=== PATIENT | female | born 1945 | race Caucasian/White ===

== ENCOUNTER 2020-10-01 20:58 | Inpatient (IN) | payer MEDICARE ==
[~2020-10-01] VITALS: Ht 154.9 cm; Wt 57.8 kg
[2020-10-01 21:21] LABS: BASOPHILS % (AUTO) 3 % (0-1); EOSINOPHILS % (AUTO) 2 % (1-7); LYMPHOCYTES % (AUTO) 36 % (22-44); MEAN CORPUSCULAR HEMOGLOBIN 31.6 pg (27.0-34.8); MEAN CORPUSCULAR HGB CONC 32.9 g/dL (32.4-35.8); MEAN PLATELET VOLUME 7.8 fL (7.4-10.4); MONOCYTES % (AUTO) 11 % (2-9); NEUTROPHILS % (AUTO) 48 % (42-75); PLATELET COUNT 322 x10^3/uL (130-400); RED BLOOD COUNT 4.02 x10^6/uL (3.82-5.3); RED CELL DISTRIBUTION WIDTH 12.8 % (9.6-15.2)
[2020-10-01 21:23] LABS: MD NO
[2020-10-01] MEDS ORDERED: [UNRECOGNIZED DRUG - REMARK] MC SCH (21:30)
[2020-10-01] MEDS ORDERED: PROPOFOL 100 ML IV PRN (21:30)
[2020-10-01] MEDS ORDERED: MIDAZOLAM 1 MG/ML, 5ML IVPush ONE ×2 (21:30→22:30)
--- NOTE | 2020-10-01 21:30 | NUR ---
Verbal order 5mg versed for breakthrough movement.
--- NOTE | 2020-10-01 22:01 | NUR ---
ETT 7.5 24 and lip tube exchange by dr gomez.
--- NOTE | 2020-10-01 22:02 | NUR ---
Verbal 5mg IV for tube exchange. Son here informed and updated. Pt son states from [place], has hx of status epilepsy.
--- NOTE | 2020-10-01 22:09 | NUR ---
Benito Neal: [phone] [facility].
--- NOTE | 2020-10-01 22:32 | NUR ---
Requested versed drip for breakthrough movement. Waiting for hospitalist orders/pulm orders. VSS. Urine sent to lab
[2020-10-01] MEDS ORDERED: FENTANYL PF 100 MCG/2ML ONE (22:35)
[2020-10-01 22:53] LABS: MICROSCOPIC NOT IND
[2020-10-01] MEDS ORDERED: FENTANYL PF 100 MCG/2ML IVPush ONE (23:00)
[2020-10-01] MEDS ORDERED: MIDAZOLAM HCL 50 MG in SODIUM CHLORIDE 0.9% 40 ML IV PRN (23:00)
[2020-10-01] MEDS ORDERED: LEVETIRACETAM 1,000 MG in SODIUM CHLORIDE 0.9% 100 ML IV ONE (23:00)
[2020-10-01 23:06] LABS: AMPHETAMINE SCREEN, URINE Negative (Negative); BARBITURATE SCREEN, URINE Negative (Negative); BENZODIAZEPINE SCREEN, URINE Positive (Negative); CANNABINOID SCREEN, URINE Negative (Negative); COCAINE SCREEN, URINE Negative (Negative); METHADONE SCREEN, URINE Negative (Negative); OPIATE SCREEN, URINE Negative (Negative)
--- NOTE | 2020-10-01 23:09 | NUR ---
Added versed infusion, to left arm IV. Keppra infusion going. VSS
[2020-10-01] MEDS ORDERED: [UNRECOGNIZED DRUG - OTHER] (23:17)
[2020-10-01] MEDS ORDERED: keppra (23:17)
[2020-10-01] MEDS ORDERED: ATORVAS (23:17)
[2020-10-01] MEDS ORDERED: LEVO25TA2 PO (23:17)
--- NOTE | 2020-10-01 23:25 | NUR ---
Waiting for hospitalist orders. VSS.
--- NOTE | 2020-10-01 23:39 | NUR ---
Son Benito states pt has had over 4 status epilepticus in past few years requiring intubation and large amts of sedation/paralytics. States she had head injury long time ago now with seizures, takes keppra everyday; unknown dose now. Hx stress cardiomyopathy, thyroid disorder, htn. States whenever gets stressed has status and was stressed today. No smoking, no drinking no drugs.
--- NOTE | 2020-10-01 23:51 | NUR ---
Dr Zavaleta at bedside.
--- NOTE | 2020-10-02 | NUR ---
Report to HEIDY Scott
[2020-10-02 00:23] LABS: ALANINE AMINOTRANSFERASE 20 U/L (12-78); ALBUMIN 3.5 g/dL (3.4-5.0)
[2020-10-02 00:25] LABS: ALKALINE PHOSPHATASE 127 U/L (45-117); BILIRUBIN,TOTAL 0.2 mg/dL (0.2-1.0); TOTAL PROTEIN 7.6 g/dL (6.4-8.2)
[2020-10-02 00:37] LABS: BILIRUBIN, DIRECT < 0.1 mg/dL (0.1-0.2); BILIRUBIN,INDIRECT 0.1 mg/dL (0.0-2.0)
[2020-10-02 01:11] LABS: FREE T4 (FREE THYROXINE) 1.28 ng/dL (0.76-1.46)
[2020-10-02] MEDS ORDERED: PROPOFOL 100 ML IV PRN (01:30)
[2020-10-02] MEDS ORDERED: BISACODYL 10 MG SUPP PR PRN (01:30)
[2020-10-02] MEDS ORDERED: LIDOCAINE-MPF 1%, 2ML ENDO PRN (01:30)
[2020-10-02] MEDS ORDERED: HEPARIN 5,000 UNITS/ML, 1ML SQ SCH (01:30)
[2020-10-02] MEDS ORDERED: MIDAZOLAM HCL 50 MG in SODIUM CHLORIDE 0.9% 40 ML IV PRN (01:30)
[2020-10-02] MEDS ORDERED: POTASSIUM CHLORIDE 20 MEQ TAB.ER.PRT PO ONE (01:30)
[2020-10-02] MEDS ORDERED: SENNA 176 MG/5 ML ORAL SOL NG PRN (01:30)
[2020-10-02] MEDS: SODIUM CHLORIDE 0.9% 1,000 ML IV SCH ×2 (01:30→14:40)
[2020-10-02] MEDS ORDERED: SENNA/DOCUSATE TABLET NG PRN (01:30)
[2020-10-02] MEDS ORDERED: PHARMACY MAY ADJ FOR RENAL FX MC SCH ×2 (01:30)
[2020-10-02] MEDS ORDERED: LACTULOSE 20 GM/30 ML UDC NG PRN (01:30)
[2020-10-02] MEDS ORDERED: LEVOTHYROXINE 25 MCG TABLET PO SCH (06:00)
[2020-10-02 06:21] LABS: BASOPHILS % (AUTO) 1 % (0-1); EOSINOPHILS % (AUTO) 1 % (1-7); LYMPHOCYTES % (AUTO) 18 % (22-44); MD NO; MEAN CORPUSCULAR HEMOGLOBIN 31.8 pg (27.0-34.8); MEAN PLATELET VOLUME 7.8 fL (7.4-10.4); MONOCYTES % (AUTO) 13 % (2-9); NEUTROPHILS % (AUTO) 68 % (42-75); PLATELET COUNT 296 x10^3/uL (130-400); RED CELL DISTRIBUTION WIDTH 12.4 % (9.6-15.2)
[2020-10-02 06:28] LABS: ALANINE AMINOTRANSFERASE 17 U/L (12-78); ALBUMIN 3.1 g/dL (3.4-5.0); ANION GAP 6 mmol/L (5-15); CALCIUM 8.1 mg/dL (8.5-10.1); CHLORIDE 114 mmol/L (98-107); CREATININE 0.64 mg/dL (0.55-1.02)
[2020-10-02 06:30] LABS: ALKALINE PHOSPHATASE 107 U/L (45-117); BILIRUBIN,TOTAL 0.3 mg/dL (0.2-1.0); TOTAL PROTEIN 6.7 g/dL (6.4-8.2)
[2020-10-02] MEDS: ENOXAPARIN 40 MG/0.4 ML SQ SCH (07:53)
[2020-10-02] MEDS: FAMOTIDINE 20 MG/2 ML IVPush SCH ×2 (08:42→20:20)
[2020-10-02] MEDS: LEVOTHYROXINE 100 MCG INJ IVPush SCH (08:43)
[2020-10-02] MEDS ORDERED: ZONISAMIDE 50 MG CAPSULE PEG SCH (09:00)
[2020-10-02] MEDS: LEVETIRACETAM 1,000 MG in SODIUM CHLORIDE 0.9% 100 ML IV SCH ×2 (09:51→22:13)
[2020-10-02] MEDS ORDERED: PROPOFOL 10 MG/ML, 100ML IV ONE (11:52)
[2020-10-02] MEDS ORDERED: MIDAZOLAM 1 MG/ML, 5ML ONE (11:52)
[2020-10-02] MEDS: ZONISAMIDE 50 MG CAPSULE PO SCH (12:08)
[2020-10-02] MEDS: AMPICILLIN/SULBACTAM 3 GM in SODIUM CHLORIDE 0.9% 100 ML IV SCH (18:16)
[2020-10-02 21:27] VITALS: BP 96/60
[2020-10-03] MEDS: AMPICILLIN/SULBACTAM 3 GM in SODIUM CHLORIDE 0.9% 100 ML IV SCH ×2 (01:21→08:00)
[2020-10-03 02:49] VITALS: BP 90/50
[2020-10-03] MEDS: SODIUM CHLORIDE 0.9% 1,000 ML IV SCH (04:10)
[2020-10-03 04:17] VITALS: BP 96/58
[2020-10-03 05:55] LABS: CHLORIDE 117 mmol/L (98-107)
[2020-10-03 05:59] LABS: CALCIUM 8.3 mg/dL (8.5-10.1); CREATININE 0.68 mg/dL (0.55-1.02)
[2020-10-03 06:41] LABS: ANION GAP 8 mmol/L (5-15)
[2020-10-03 07:23] LABS: BASOPHILS % (AUTO) 0 % (0-1); EOSINOPHILS % (AUTO) 3 % (1-7); LYMPHOCYTES % (AUTO) 19 % (22-44); MEAN CORPUSCULAR HEMOGLOBIN 32.4 pg (27.0-34.8); MEAN CORPUSCULAR HGB CONC 33.9 g/dL (32.4-35.8); MONOCYTES % (AUTO) 12 % (2-9); NEUTROPHILS % (AUTO) 65 % (42-75); PLATELET COUNT 231 x10^3/uL (130-400); RED BLOOD COUNT 3.26 x10^6/uL (3.82-5.3); RED CELL DISTRIBUTION WIDTH 12.5 % (9.6-15.2)
[2020-10-03 07:45] LABS: MD NO
[2020-10-03] MEDS: FAMOTIDINE 20 MG/2 ML IVPush SCH (08:00)
[2020-10-03] MEDS: LEVOTHYROXINE 100 MCG INJ IVPush SCH (08:01)
[2020-10-03] MEDS: ENOXAPARIN 40 MG/0.4 ML SQ SCH (08:02)
[2020-10-03 08:39] VITALS: BP 95/56
[2020-10-03] MEDS: ZONISAMIDE 50 MG CAPSULE PO SCH (09:34)
[2020-10-03] MEDS: POTASSIUM CHLORIDE 20 MEQ TAB.ER.PRT PO SCH ×3 (09:34→16:50)
[2020-10-03] MEDS ORDERED: LEVETIRACETAM 500 MG TABLET PO SCH ×2 (11:00→21:00)
[2020-10-03 14:28] VITALS: BP 109/68
[2020-10-03] MEDS ORDERED: ZONI50CA10 PO (14:30)
[2020-10-03] MEDS ORDERED: LACT1TAB13 PO (14:30)
[2020-10-03] MEDS ORDERED: LEVE500T53 PO (14:30)
[2020-10-03] MEDS ORDERED: AMOX1TAB12 PO (14:30)
[2020-10-03] MEDS ORDERED: AMOXICILLIN/CLAV 875-125MG TABLET PO SCH (21:00)
[2020-10-04] MEDS ORDERED: LEVOTHYROXINE 25 MCG TABLET PO SCH (06:00)
== END 2020-10-03 17:26 | disposition home or self-care (01) | DRG 208 ==
LOC: EDBD 20:58 → ED 21:44 → EDIP 22:11 → CCU 10-02 00:13 → 4EST 10-02 20:55
PROVIDERS: ADMIT Family Medicine; ATTEND Internal Medicine
PROC: 5A1945Z Respiratory Ventilation, 24-96 Consecutive Hours (ICD-10-PCS; 2020-10-01)
PROC: 0CJS8ZZ Inspection of Larynx, Via Natural or Artificial Opening Endoscopic (ICD-10-PCS; 2020-10-01)
PROC: 0T9B30Z Drainage of Bladder with Drainage Device, Percutaneous Approach (ICD-10-PCS; 2020-10-01)
PROC: 0B21XEZ Change Endotracheal Airway in Trachea, External Approach (ICD-10-PCS; principal; 2020-10-02)
DX: J96.01 Acute respiratory failure with hypoxia (principal); J69.0 Pneumonitis due to inhalation of food and vomit; G40.501 Epileptic seizures related to external causes, not intractable, with status epilepticus; I51.81 Takotsubo syndrome; Z99.11 Dependence on respirator [ventilator] status; R94.6 Abnormal results of thyroid function studies; D32.0 Benign neoplasm of cerebral meninges; D72.829 Elevated white blood cell count, unspecified; E03.9 Hypothyroidism, unspecified; E78.5 Hyperlipidemia, unspecified; E87.6 Hypokalemia; E88.09 Other disorders of plasma-protein metabolism, not elsewhere classified; Z86.011 Personal history of benign neoplasm of the brain; Z79.899 Other long term (current) drug therapy; Z79.891 Long term (current) use of opiate analgesic; Z79.01 Long term (current) use of anticoagulants
CPT/HCPCS: 36415; 36600; 70450; 71045; 74018; 80047; 80048; 80053; 80076; 80307; 80320; 81003; 82803; 83735; 84439; 84443; 84478; 84481; 85025; 87040; 87070; 87081; 87205; 93005; 94002; 94003; 95819; 96374; 96375; G0378; J0295; J1644; J1650; J1953; J2250; J2704; J3010; G0480; J7030